=== PATIENT | male | born 1935 | race Caucasian/White ===

== ENCOUNTER 2017-12-12 09:28 | Emergency (ER) | payer OTHER ==
[~2017-12-12] VITALS: Ht 170.2 cm; Wt 61.8 kg
[2017-12-12 09:39] VITALS: BP 191/93; PULSE 78; RESP 15; O2SAT 99
[2017-12-12 09:43] VITALS: BP 197/81; PULSE 67; RESP 15; O2SAT 100
[2017-12-12] MEDS ORDERED: SODIUM CHLORIDE 0.9% FLUSH 10 ML FLUSH IVF PRN (10:00)
[2017-12-12 10:14] LABS: AUTOMATED NEUTROPHIL # 5.8 TH/MM3 (1.8-7.7); BASOPHIL % 0.5 % (0.0-2.0); EOSINOPHIL # 0.1 TH/MM3 (0-0.4); EOSINOPHIL % 0.7 % (0.0-4.0); HEMATOCRIT 44.2 % (39.0-51.0); HEMOGLOBIN 15.5 GM/DL (13.0-17.0); LYMPH % 22.8 % (9.0-44.0); MEAN CELL VOLUME 91.7 FL (80.0-100.0); MEAN CORPUSCULAR HEMOGLOBIN 32.2 PG (27.0-34.0); MEAN CORPUSCULAR HGB CONC 35.1 % (32.0-36.0); MONO % 8.8 % (0.0-8.0); MONOCYTE # 0.8 TH/MM3 (0-0.9); NEUT % 67.2 % (16.0-70.0); PLATELET COUNT 241 TH/MM3 (150-450); RED BLOOD COUNT 4.82 MIL/MM3 (4.50-5.90); RED CELL DISTRIBUTION WIDTH 14.2 % (11.6-17.2); WHITE BLOOD COUNT 8.6 TH/MM3 (4.0-11.0)
--- NOTE | 2017-12-12 10:15 | PD ---
HPI . Altered mental status Chief Complaint: Altered Mental Status Time Seen by Provider: 09:58 Travel History International Travel<30 days: No Contact w/Intl Traveler<30days: No Traveled to known affect area: No History of Present Illness HPI Patient presents to us this morning following a brief episode of altered mental status last night. It lasted for about 15 minutes. He was just confused while walking his dog. His mental status has now returned are normal. Symptoms were mild. He does complain with some left thigh pain for the last several days. He has not injured his leg in any way. He does state that his pain is exacerbated by certain types of movement. [facility] Past Medical History Cancer: Yes (PROSTATE) Cerebrovascular Accident: Yes (TIA?) Diminished Hearing: No Tetanus Vaccination: < 5 Years Social History Alcohol Use: No Tobacco Use: No Substance Use: No Allergies-Medications (Allergen,Severity, Reaction): Coded Allergies: No Known Allergies (Unverified , 12/12/17) Reported Meds & Prescriptions Reported Meds & Active Scripts Active Active Prescriptions or Reported Medications Unobtainable Review of Systems Except as stated in HPI: all other systems reviewed are Neg Neurologic: Positive: Change in Mentation, No: Focal Abnormalities Physical Exam Narrative GENERAL: Awake and alert. SKIN: warm/dry. Normal color and turgor. HEAD: Normocephalic. Atraumatic. EYES: Pupils equal and round. No scleral icterus. No injection or drainage. ENT: No nasal bleeding or discharge. Mucous membranes pink and moist. NECK: Trachea midline. Full range of motion without pain.. CARDIOVASCULAR: Regular rate and rhythm. Heart sounds normal. RESPIRATORY: No accessory muscle use. Clear to auscultation. Breath sounds equal bilaterally. GASTROINTESTINAL: Abdomen soft. Nontender. Bowel sounds present. Nondistended. MUSCULOSKELETAL: No obvious deformities. NEUROLOGICAL: Awake and alert. No obvious cranial nerve deficits. Motor grossly within normal limits. Normal speech. PSYCHIATRIC: Appropriate mood and affect; insight and judgment normal. Data Data Last Documented VS Vital Signs Date Time Temp Pulse Resp B/P (MAP) Pulse Ox O2 Delivery O2 Flow Rate FiO2 12/12/17 10:35 (119) Nasal Cannula 2.00 12/12/17 09:43 67 15 100 Orders Orders Electrocardiogram (12/12/17 ) Complete Blood Count With Diff (12/12/17 09:58) Basic Metabolic Panel (Bmp) (12/12/17 09:58) Urinalysis - C+S If Indicated (12/12/17 09:58) Ct Brain W/O Iv Contrast(Rout) (12/12/17 09:58) Ecg Monitoring (12/12/17 09:58) Iv Access Insert/Monitor (12/12/17 09:58) Oximetry (12/12/17 09:58) Sodium Chloride 0.9% Flush (Ns Flush) (12/12/17 10:00) Hip, Uni(Ap&Lat) W Ap Pelvis (12/12/17 10:02) Us Leg Venous Doppler (12/12/17 10:02) Labs Laboratory Tests Test 12/12/17 10:00 12/12/17 12:05 White Blood Count 8.6 TH/MM3 Red Blood Count 4.82 MIL/MM3 Hemoglobin 15.5 GM/DL Hematocrit 44.2 % Mean Corpuscular Volume 91.7 FL Mean Corpuscular Hemoglobin 32.2 PG Mean Corpuscular Hemoglobin Concent 35.1 % Red Cell Distribution Width 14.2 % Platelet Count 241 TH/MM3 Mean Platelet Volume 8.0 FL Neutrophils (%) (Auto) 67.2 % Lymphocytes (%) (Auto) 22.8 % Monocytes (%) (Auto) 8.8 % Eosinophils (%) (Auto) 0.7 % Basophils (%) (Auto) 0.5 % Neutrophils # (Auto) 5.8 TH/MM3 Lymphocytes # (Auto) 2.0 TH/MM3 Monocytes # (Auto) 0.8 TH/MM3 Eosinophils # (Auto) 0.1 TH/MM3 Basophils # (Auto) 0.0 TH/MM3 CBC Comment DIFF FINAL Differential Comment Blood Urea Nitrogen 17 MG/DL Creatinine 1.15 MG/DL Random Glucose 80 MG/DL Calcium Level 8.7 MG/DL Sodium Level 138 MEQ/L Potassium Level 5.7 MEQ/L Chloride Level 106 MEQ/L Carbon Dioxide Level 22.6 MEQ/L Anion Gap 9 MEQ/L Estimat Glomerular Filtration Rate 61 ML/MIN Urine Color YELLOW Urine Turbidity CLEAR Urine pH 5.5 Urine Specific [place] 1.016 Urine Protein NEG mg/dL Urine Glucose (UA) NEG mg/dL Urine Ketones TRACE mg/dL Urine Occult Blood NEG Urine Nitrite NEG Urine Bilirubin NEG Urine Urobilinogen LESS THAN 2.0 MG/DL Urine Leukocyte Esterase NEG Urine RBC LESS THAN 1 /hpf Urine WBC 1 /hpf Urine Mucus FEW /lpf Microscopic Urinalysis Comment CATH-CULT NOT IND MDM Medical Decision Making Medical Screen Exam Complete: Yes Emergency Medical Condition: Yes Interpretation(s) EKG shows a sinus rhythm with no acute ischemic change Differential Diagnosis Differential diagnosis of altered mental status includes but is not limited to infection, electrolyte abnormality, neurological event, intoxication Narrative Course This patient presents with a brief episode of altered mental status. He is now back to baseline. CBC & BMP Diagram 12/12/17 10:00 Calcium Level 8.7 Last Impressions Lower Extremity Ultrasound 12/12/17 1002 Signed Impressions: Service Date/Time: Tuesday, December 12, 2017 10:52 - CONCLUSION: Normal examination. Tony Aguirre MD Hip and Pelvis X-Ray 12/12/17 1002 Signed Impressions: Service Date/Time: Tuesday, December 12, 2017 10:18 - CONCLUSION: Osteoarthritis and degenerative disc disease. Tony Aguirre MD Head CT 12/12/17 0958 Signed Impressions: Service Date/Time: Tuesday, December 12, 2017 10:36 - CONCLUSION: No acute disease. Tony Aguirre MD UA is negative No etiology for his transient alteration in consciousness has been found. The etiology of his left pain is probably arthritis. The history, exam, diagnostic testing, and current condition do not suggest any significant pathology to warrant further testing, continued ED treatment, admission, or surgical evaluation at this point. No EMC was found. The patient 's condition is stable and appropriate for discharge. Diagnosis Primary Impression: Altered mental status Qualified Codes: R40.4 - Transient alteration of awareness Additional Impressions: Left leg pain Arthritis Patient Instructions: Altered Mental Status (ED), General Instructions Scripts Acetaminophen-Codeine (Tylenol-Codeine #3) 300-30 mg Tab 1 TAB PO Q4H Y for PAIN, #12 TAB 0 Refills Prov: Emily Varghese MD 12/12/17 Disposition: 01 DISCHARGE HOME Condition: Stable Emily Varghese MD Dec 12, 2017 10:15
--- NOTE | 2017-12-12 10:32 | RADRPT ---
EXAM DATE/TIME: 12/12/2017 10:18 [facility] COMPARISON: No previous studies available for comparison. INDICATIONS : Left hip pain after fall, syncope episode. MEDICAL HISTORY : None. SURGICAL HISTORY : None. ENCOUNTER: Initial ACUITY: 2 days PAIN SCORE: 5/10 LOCATION: Left hip FINDINGS: Moderate narrowing of the left greater than right hip joint. Mild acetabular osteophyte formation. Se aidee degenerative disc disease at L5-S1. There are no fractures. Bone density is diminished. CONCLUSION: Osteoarthritis and degenerative disc disease. Tony Aguirre MD on December 12, 2017 at 10:30 Board Certified Radiologist. This report was verified electronically.
[2017-12-12 10:44] LABS: BICARBONATE 22.6 MEQ/L (21.0-32.0); CALCIUM 8.7 MG/DL (8.5-10.1); CREATININE 1.15 MG/DL (0.60-1.30)
--- NOTE | 2017-12-12 10:49 | RADRPT ---
EXAM DATE/TIME: 12/12/2017 10:36 [facility] COMPARISON: No previous studies available for comparison. INDICATIONS : Altered mental status RADIATION DOSE: 34.95 CTDIvol (mGy) MEDICAL HISTORY : Cerebrovascular disease. Prostate cancer SURGICAL HISTORY : Right ankle surgery ENCOUNTER: Initial ACUITY: 2 days PAIN SCALE: 0/10 LOCATION: Bilateral cranial TECHNIQUE: Multiple contiguous axial images were obtained of the head. Using automated exposure control and adj ustment of the mA and/or kV according to patient size, radiation dose was kept as low as reasonably a chievable to obtain optimal diagnostic quality images. DICOM format image data is available electro nically for review and comparison. FINDINGS: Osseous structures are intact. There is diffuse volume loss with prominence of the cortical sulci, ve ntricles and cisterns. Patchy periventricular white matter disease, most likely on the basis of chron ic microvascular ischemic disease. Atherosclerotic calcifications of the carotid and vertebral arteri es. No signs of acute infarct, hemorrhage or mass. CONCLUSION: No acute disease. Tony Aguirre MD on December 12, 2017 at 10:47 Board Certified Radiologist. This report was verified electronically.
--- NOTE | 2017-12-12 11:11 | RADRPT ---
EXAM DATE/TIME: 12/12/2017 10:52 [facility] COMPARISON: No previous studies available for comparison. INDICATIONS : Left leg swelling and pain. MEDICAL HISTORY : Transient ischemic attack. Prostate cancer. SURGICAL HISTORY : Left ankle surgery. ENCOUNTER: Initial ACUITY: 2 day PAIN SCORE: 3/10 LOCATION: Left leg. TECHNIQUE: Venous ultrasound of the leg was performed from the inguinal ligament to the proximal calf. Real-franco e, color Doppler and spectral tracing, compression and augmentation techniques were used. FINDINGS: There is normal compressibility of the deep venous system from the inguinal region to the proximal ca lf. No echogenic clot is seen in the lumen of the common femoral, femoral, popliteal, and posterior tibial veins. There is a normal response of the venous system to proximal and distal augmentation an d respiration. CONCLUSION: Normal examination. Tony Aguirre MD on December 12, 2017 at 11:10 Board Certified Radiologist. This report was verified electronically.
[2017-12-12 12:42] LABS: BILIRUBIN, URINE NEG (NEG); BLOOD, URINE NEG (NEG); GLUCOSE,URINE NEG (NEG); KETONE, URINE TRACE mg/dL (NEG); MUCUS URINE FEW /lpf (OCC); NITRITE,URINE NEG (NEG); PH, URINE 5.5 (5.0-8.5); URINE COLOR YELLOW (YELLW/STRAW); URINE LEUKOCYTE ESTERASE NEG (NEG)
[2017-12-12] MEDS ORDERED: TYLETAB34 PO (13:07)
[2017-12-12 13:22] VITALS: BP 189/86; PULSE 70; RESP 15; O2SAT 94
--- NOTE | 2017-12-12 17:48 | EKG ---
Date Performed: 12/12/2017 Time Performed: 09:38:29 PTAGE: 82 years EKG: Sinus rhythm WITH MARKED RHYTHM IRREGULARITY, POSSIBLE NON-CONDUCTED PAC, SA BLOCK, AV BLOCK, OR SINUS PAUSE LEFT ANTERIOR FASCICULAR BLOCK MODERATE VOLTAGE CRITERIA FOR LVH, CONSIDER NORMAL VARIANT POSSIBLE SEPTAL MYOCARDIAL INFARCTION ABNORMAL ECG NO PREVIOUS TRACING DOCTOR: Debbie Madsen Interpretating Date/Time 12/12/2017 17:46:02
== END 2017-12-12 13:27 | disposition home or self-care (01) ==
LOC: NEPE 09:28
DX: R40.4 Transient alteration of awareness (principal); M79.652 Pain in left thigh; M19.90 Unspecified osteoarthritis, unspecified site; I67.9 Cerebrovascular disease, unspecified; R94.31 Abnormal electrocardiogram [ECG] [EKG]; Z85.46 Personal history of malignant neoplasm of prostate; Z86.73 Personal history of transient ischemic attack (TIA), and cerebral infarction without residual deficits
CPT/HCPCS: 70450; 73502; 80048; 81001; 85025; 93005; 93971